=== PATIENT | male | born 1940 | race Caucasian/White ===

== ENCOUNTER 2017-11-02 13:06 | Inpatient (IN) | payer MEDICARE, OTHER ==
[~2017-11-02] VITALS: Ht 170.2 cm; Wt 102.5 kg
[2017-11-02] MEDS ORDERED: SODIUM CHLORIDE FLUSH 10ML SYR IVF ONE (14:00)
[2017-11-02] MEDS ORDERED: APIX5TAB PO (14:11)
[2017-11-02] MEDS ORDERED: ATOR10TA9 PO (14:12)
[2017-11-02] MEDS ORDERED: FURO20TA3 PO (14:12)
[2017-11-02] MEDS ORDERED: LEVO25TA4 PO (14:12)
[2017-11-02 14:13] LABS: BASOPHILS % (AUTO) 0 % (0-1); EOSINOPHILS # (AUTO) 0.01 x10^3/uL (0-0.4); EOSINOPHILS % (AUTO) 0 % (1-7); LYMPHOCYTES # (AUTO) 0.25 x10^3/uL (1-3.4); LYMPHOCYTES % (AUTO) 6 % (22-44); MD NO; MEAN CORPUSCULAR HEMOGLOBIN 29.4 pg (27.5-34.5); MEAN CORPUSCULAR HGB CONC 33.4 g/dL (33.2-36.2); MEAN CORPUSCULAR VOLUME 87.9 fL (81-97); MEAN PLATELET VOLUME 8.5 fL (7.4-10.4); MONOCYTES # (AUTO) 0.49 x10^3/uL (0.2-0.8); MONOCYTES % (AUTO) 11 % (2-9); NEUTROPHILS # (AUTO) 3.64 x10^3/uL (1.8-6.8); NEUTROPHILS % (AUTO) 83 % (42-75); PLATELET COUNT 146 x10^3/uL (130-400)
[2017-11-02] MEDS ORDERED: METO25TA35 PO (14:13)
[2017-11-02] MEDS ORDERED: TAMS0.4C2 PO (14:13)
[2017-11-02] MEDS ORDERED: LOSA25TA6 PO (14:13)
[2017-11-02] MEDS ORDERED: INSU100V8 SQ (14:14)
[2017-11-02] MEDS ORDERED: CHOL200085 PO (14:14)
[2017-11-02] MEDS ORDERED: INSU100C SQ-INSULIN (14:14)
[2017-11-02] MEDS ORDERED: ASPI-515 PO (14:15)
[2017-11-02 14:21] LABS: ALANINE AMINOTRANSFERASE 23 U/L (12-78); ALBUMIN 3.2 g/dL (3.4-5.0); ANION GAP 11 mmol/L (5-15); CALCIUM 8.2 mg/dL (8.5-10.1); CHLORIDE 112 mmol/L (98-107); INTERNATIONAL NORMALIZED RATIO 1.25 (0.93-1.1); PROTHROMBIN TIME 12.9 Seconds (9.6-11.5)
[2017-11-02 14:26] LABS: ALKALINE PHOSPHATASE 129 U/L (45-117); CREATININE 2.44 mg/dL (0.7-1.3); TOTAL PROTEIN 6.1 g/dL (6.4-8.2); TROPONIN I 0.042 ng/mL (0.000-0.045)
[2017-11-02] MEDS ORDERED: BISACODYL 10 MG SUPP PR PRN (16:30)
[2017-11-02] MEDS ORDERED: POLYETHYLENE GLYCOL 17 GM PACKET PO PRN (16:30)
[2017-11-02] MEDS ORDERED: LABETALOL 5MG/ML, 20ML IVPush PRN (16:30)
[2017-11-02] MEDS ORDERED: ACETAMINOPHEN 325 MG TABLET PO PRN (16:30)
[2017-11-02] MEDS ORDERED: HEPARIN 5,000 UNITS/ML, 1ML SQ SCH (16:30)
[2017-11-02] MEDS ORDERED: DOCUSATE 100 MG CAPSULE PO PRN (16:30)
[2017-11-02] MEDS: INSULIN GLARGINE 100 UNITS/ML, PEN SQ-INSULIN SCH ×2 (16:30→21:59)
[2017-11-02] MEDS ORDERED: ONDANSETRON 2MG/ML, 2ML IVPush PRN (16:30)
[2017-11-02 17:26] VITALS: BP 107/69
[2017-11-02 19:05] LABS: MICROSCOPIC NOT IND
[2017-11-02 19:07] LABS: CULTURE INDICATED? NO
[2017-11-02 21:14] LABS: TROPONIN I 0.097 ng/mL (0.000-0.045)
[2017-11-02 21:53] VITALS: BP 119/76
[2017-11-02] MEDS: TAMSULOSIN 0.4 MG CAP.ER.24H PO SCH (21:57)
[2017-11-02] MEDS: ATORVASTATIN 40 MG TABLET PO SCH (21:57)
[2017-11-02] MEDS: APIXABAN 5 MG TABLET PO SCH (21:57)
[2017-11-02] MEDS: INSULIN LISPRO 100 UNITS/ML, PEN SQ-INSULIN SCH (21:58)
[2017-11-02] MEDS: METOPROLOL TARTRATE 25 MG TABLET PO SCH (21:58)
[2017-11-02] MEDS: SODIUM CHLORIDE FLUSH 10ML SYR IVF SCH (21:59)
[2017-11-02] MEDS ORDERED: DIPHENHYDRAMINE 25 MG CAPSULE PO ONE (23:30)
[2017-11-03] VITALS (7 sets, daily range): BP systolic 95–111; BP diastolic 62–70
[2017-11-03 02:46] LABS: BASOPHILS # (AUTO) 0.01 x10^3/uL (0-0.1); BASOPHILS % (AUTO) 0 % (0-1); EOSINOPHILS # (AUTO) 0.04 x10^3/uL (0-0.4); EOSINOPHILS % (AUTO) 1 % (1-7); LYMPHOCYTES # (AUTO) 0.38 x10^3/uL (1-3.4); LYMPHOCYTES % (AUTO) 8 % (22-44); MD NO; MEAN CORPUSCULAR HEMOGLOBIN 28.5 pg (27.5-34.5); MEAN CORPUSCULAR HGB CONC 32.7 g/dL (33.2-36.2); MEAN CORPUSCULAR VOLUME 87.3 fL (81-97); MEAN PLATELET VOLUME 8.3 fL (7.4-10.4); MONOCYTES # (AUTO) 0.74 x10^3/uL (0.2-0.8); MONOCYTES % (AUTO) 16 % (2-9); NEUTROPHILS # (AUTO) 3.53 x10^3/uL (1.8-6.8); NEUTROPHILS % (AUTO) 75 % (42-75); PLATELET COUNT 153 x10^3/uL (130-400); RED BLOOD COUNT 3.72 x10^6/uL (4.38-5.82); RED CELL DISTRIBUTION WIDTH 15.9 % (9.4-14.8)
[2017-11-03 02:55] LABS: ANION GAP 10 mmol/L (5-15); CALCIUM 8.1 mg/dL (8.5-10.1); CHLORIDE 113 mmol/L (98-107)
[2017-11-03 03:00] LABS: CREATININE 2.52 mg/dL (0.7-1.3); TROPONIN I 0.102 ng/mL (0.000-0.045)
[2017-11-03] MEDS: FUROSEMIDE 20 MG/2 ML IV SCH ×2 (07:30→07:32)
[2017-11-03] MEDS: INSULIN LISPRO 100 UNITS/ML, PEN SQ-INSULIN SCH ×4 (07:31→21:09)
[2017-11-03] MEDS: APIXABAN 5 MG TABLET PO SCH ×2 (07:32→20:55)
[2017-11-03] MEDS: ASPIRIN 81 MG TABLET EC PO SCH (07:32)
[2017-11-03] MEDS: LEVOTHYROXINE 137 MCG TABLET PO SCH (07:32)
[2017-11-03] MEDS: CHOLECALCIFEROL 1,000 UNIT TABLET PO SCH (07:32)
[2017-11-03] MEDS: SODIUM CHLORIDE FLUSH 10ML SYR IVF SCH ×2 (07:32→20:55)
[2017-11-03] MEDS: METOPROLOL TARTRATE 25 MG TABLET PO SCH (07:33)
[2017-11-03] MEDS ORDERED: LOSARTAN 50MG TABLET PO SCH (09:00)
[2017-11-03] MEDS ORDERED: DOPAMINE/D5W PMX 250 ML IV PRN (16:00)
[2017-11-03] MEDS: MIDODRINE 5 MG TABLET PO SCH ×2 (16:36→20:55)
[2017-11-03] MEDS ORDERED: FUROSEMIDE 20 MG/2 ML IV SCH (18:00)
[2017-11-03] MEDS: ATORVASTATIN 40 MG TABLET PO SCH (20:55)
[2017-11-03] MEDS: TAMSULOSIN 0.4 MG CAP.ER.24H PO SCH (20:55)
[2017-11-03] MEDS ORDERED: DIPHENHYDRAMINE 50 MG CAPSULE PO ONE (21:00)
[2017-11-03] MEDS ORDERED: INSULIN GLARGINE 100 UNITS/ML, PEN SQ-INSULIN SCH (21:00)
[2017-11-04 01:17] VITALS: BP 107/72
[2017-11-04 05:23] VITALS: BP 107/69
[2017-11-04 05:39] LABS: BASOPHILS # (AUTO) 0.02 x10^3/uL (0-0.1); BASOPHILS % (AUTO) 0 % (0-1); EOSINOPHILS # (AUTO) 0.05 x10^3/uL (0-0.4); EOSINOPHILS % (AUTO) 1 % (1-7); LYMPHOCYTES # (AUTO) 0.48 x10^3/uL (1-3.4); LYMPHOCYTES % (AUTO) 11 % (22-44); MD NO; MEAN CORPUSCULAR HEMOGLOBIN 28.4 pg (27.5-34.5); MEAN CORPUSCULAR HGB CONC 32.3 g/dL (33.2-36.2); MEAN CORPUSCULAR VOLUME 87.9 fL (81-97); MEAN PLATELET VOLUME 8.6 fL (7.4-10.4); MONOCYTES # (AUTO) 0.82 x10^3/uL (0.2-0.8); MONOCYTES % (AUTO) 19 % (2-9); NEUTROPHILS # (AUTO) 2.93 x10^3/uL (1.8-6.8); NEUTROPHILS % (AUTO) 68 % (42-75); PLATELET COUNT 149 x10^3/uL (130-400); RED CELL DISTRIBUTION WIDTH 16.1 % (9.4-14.8)
[2017-11-04 05:54] LABS: CHLORIDE 113 mmol/L (98-107)
[2017-11-04] MEDS ORDERED: FUROSEMIDE 20 MG/2 ML IV SCH (06:00)
[2017-11-04 06:04] LABS: % IRON SATURATION 9 % (20-55); ANION GAP 9 mmol/L (5-15); CALCIUM 7.9 mg/dL (8.5-10.1); CREATININE 2.43 mg/dL (0.7-1.3); IRON LEVEL 26 mcg/dL (65-175); TOTAL IRON BINDING CAPACITY 303 mcg/dL (250-450)
[2017-11-04 06:10] VITALS: BP 105/74
[2017-11-04] MEDS: INSULIN LISPRO 100 UNITS/ML, PEN SQ-INSULIN SCH ×4 (07:00→21:30)
[2017-11-04] MEDS: CHOLECALCIFEROL 1,000 UNIT TABLET PO SCH (08:16)
[2017-11-04] MEDS: LEVOTHYROXINE 137 MCG TABLET PO SCH (08:16)
[2017-11-04] MEDS: ASPIRIN 81 MG TABLET EC PO SCH (08:16)
[2017-11-04] MEDS: APIXABAN 5 MG TABLET PO SCH ×2 (08:23→21:29)
[2017-11-04] MEDS: MIDODRINE 5 MG TABLET PO SCH ×3 (08:23→23:40)
[2017-11-04] MEDS: SODIUM CHLORIDE FLUSH 10ML SYR IVF SCH ×2 (08:24→21:29)
[2017-11-04 08:30] VITALS: BP 94/68
[2017-11-04 12:33] VITALS: BP 100/66
[2017-11-04 18:46] VITALS: BP 110/57
[2017-11-04] MEDS: FUROSEMIDE 40 MG/4 ML IV SCH (20:03)
[2017-11-04] MEDS: TAMSULOSIN 0.4 MG CAP.ER.24H PO SCH (21:29)
[2017-11-04] MEDS: ATORVASTATIN 40 MG TABLET PO SCH (21:29)
[2017-11-04] MEDS: INSULIN GLARGINE 100 UNITS/ML, PEN SQ-INSULIN SCH (21:31)
[2017-11-05 01:32] VITALS: BP 107/73
[2017-11-05 06:00] LABS: ANION GAP 10 mmol/L (5-15); CALCIUM 8.2 mg/dL (8.5-10.1); CHLORIDE 111 mmol/L (98-107); CREATININE 2.37 mg/dL (0.7-1.3)
[2017-11-05 06:35] LABS: BASOPHILS % (AUTO) 0 % (0-1); EOSINOPHILS # (AUTO) 0.05 x10^3/uL (0-0.4); EOSINOPHILS % (AUTO) 1 % (1-7); LYMPHOCYTES # (AUTO) 0.42 x10^3/uL (1-3.4); LYMPHOCYTES % (AUTO) 10 % (22-44); MD NO; MEAN CORPUSCULAR HEMOGLOBIN 28.7 pg (27.5-34.5); MEAN CORPUSCULAR HGB CONC 32.8 g/dL (33.2-36.2); MEAN CORPUSCULAR VOLUME 87.6 fL (81-97); MEAN PLATELET VOLUME 8.8 fL (7.4-10.4); MONOCYTES % (AUTO) 19 % (2-9); NEUTROPHILS # (AUTO) 2.84 x10^3/uL (1.8-6.8); NEUTROPHILS % (AUTO) 69 % (42-75); PLATELET COUNT 144 x10^3/uL (130-400); RED BLOOD COUNT 3.77 x10^6/uL (4.38-5.82); RED CELL DISTRIBUTION WIDTH 15.9 % (9.4-14.8)
[2017-11-05 06:55] VITALS: BP 103/70
[2017-11-05] MEDS: INSULIN LISPRO 100 UNITS/ML, PEN SQ-INSULIN SCH ×4 (07:00→20:12)
[2017-11-05] MEDS: SODIUM CHLORIDE FLUSH 10ML SYR IVF SCH ×2 (09:00→19:55)
[2017-11-05 09:01] VITALS: BP 106/68
[2017-11-05] MEDS: LEVOTHYROXINE 137 MCG TABLET PO SCH (09:03)
[2017-11-05] MEDS: ASPIRIN 81 MG TABLET EC PO SCH (09:03)
[2017-11-05] MEDS: APIXABAN 5 MG TABLET PO SCH ×2 (09:03→19:54)
[2017-11-05] MEDS: CHOLECALCIFEROL 1,000 UNIT TABLET PO SCH (09:03)
[2017-11-05] MEDS: MIDODRINE 5 MG TABLET PO SCH ×3 (09:04→19:55)
[2017-11-05] MEDS: FUROSEMIDE 40 MG/4 ML IV SCH ×2 (09:11→16:34)
[2017-11-05] MEDS: IRON SUCROSE COMPLEX 100MG/5ML IV SCH (11:57)
[2017-11-05 12:45] VITALS: BP 110/67
[2017-11-05 18:46] VITALS: BP 108/72
[2017-11-05] MEDS: ATORVASTATIN 40 MG TABLET PO SCH (19:54)
[2017-11-05] MEDS: TAMSULOSIN 0.4 MG CAP.ER.24H PO SCH (19:55)
[2017-11-05] MEDS: INSULIN GLARGINE 100 UNITS/ML, PEN SQ-INSULIN SCH (20:13)
[2017-11-05] MEDS ORDERED: DIPHENHYDRAMINE 25 MG CAPSULE PO PRN (21:00)
[2017-11-05] MEDS: DIPHENHYDRAMINE 25 MG CAPSULE PO PRN (21:55)
[2017-11-06] VITALS (8 sets, daily range): BP systolic 89–173; BP diastolic 53–89
[2017-11-06 05:36] LABS: BASOPHILS # (AUTO) 0.01 x10^3/uL (0-0.1); BASOPHILS % (AUTO) 0 % (0-1); EOSINOPHILS # (AUTO) 0.03 x10^3/uL (0-0.4); EOSINOPHILS % (AUTO) 1 % (1-7); LYMPHOCYTES % (AUTO) 9 % (22-44); MD NO; MEAN CORPUSCULAR HEMOGLOBIN 28.8 pg (27.5-34.5); MEAN CORPUSCULAR HGB CONC 32.9 g/dL (33.2-36.2); MEAN CORPUSCULAR VOLUME 87.3 fL (81-97); MEAN PLATELET VOLUME 8.4 fL (7.4-10.4); MONOCYTES # (AUTO) 0.86 x10^3/uL (0.2-0.8); MONOCYTES % (AUTO) 19 % (2-9); NEUTROPHILS # (AUTO) 3.23 x10^3/uL (1.8-6.8); NEUTROPHILS % (AUTO) 71 % (42-75); PLATELET COUNT 147 x10^3/uL (130-400); RED BLOOD COUNT 3.91 x10^6/uL (4.38-5.82); RED CELL DISTRIBUTION WIDTH 15.6 % (9.4-14.8)
[2017-11-06 05:47] LABS: ANION GAP 10 mmol/L (5-15); CALCIUM 8.6 mg/dL (8.5-10.1); CHLORIDE 110 mmol/L (98-107); CREATININE 2.22 mg/dL (0.7-1.3)
[2017-11-06] MEDS: INSULIN LISPRO 100 UNITS/ML, PEN SQ-INSULIN SCH ×4 (07:00→20:32)
[2017-11-06] MEDS: CHOLECALCIFEROL 1,000 UNIT TABLET PO SCH (08:50)
[2017-11-06] MEDS: ASPIRIN 81 MG TABLET EC PO SCH (08:50)
[2017-11-06] MEDS: APIXABAN 5 MG TABLET PO SCH ×2 (08:50→20:30)
[2017-11-06] MEDS: LEVOTHYROXINE 137 MCG TABLET PO SCH (08:51)
[2017-11-06] MEDS: IRON SUCROSE COMPLEX 100MG/5ML IV SCH (08:52)
[2017-11-06] MEDS: MIDODRINE 5 MG TABLET PO SCH ×3 (08:52→21:38)
[2017-11-06] MEDS: SODIUM CHLORIDE FLUSH 10ML SYR IVF SCH ×2 (09:00→20:30)
[2017-11-06] MEDS: FUROSEMIDE 40 MG/4 ML IV SCH ×2 (10:43→17:04)
[2017-11-06] MEDS: TAMSULOSIN 0.4 MG CAP.ER.24H PO SCH (20:30)
[2017-11-06] MEDS: ATORVASTATIN 40 MG TABLET PO SCH (20:30)
[2017-11-06] MEDS: INSULIN GLARGINE 100 UNITS/ML, PEN SQ-INSULIN SCH (20:32)
[2017-11-06] MEDS: DIPHENHYDRAMINE 25 MG CAPSULE PO PRN (21:39)
[2017-11-07 01:48] VITALS: BP 105/67
[2017-11-07 05:01] LABS: ANION GAP 12 mmol/L (5-15); CALCIUM 8.4 mg/dL (8.5-10.1); CHLORIDE 107 mmol/L (98-107)
[2017-11-07 05:02] LABS: MEAN CORPUSCULAR HEMOGLOBIN 28.5 pg (27.5-34.5); MEAN CORPUSCULAR VOLUME 86.5 fL (81-97); MEAN PLATELET VOLUME 8.4 fL (7.4-10.4); PLATELET COUNT 144 x10^3/uL (130-400)
[2017-11-07 05:03] LABS: CREATININE 2.23 mg/dL (0.7-1.3)
[2017-11-07 05:42] LABS: MD YES
[2017-11-07 05:44] LABS: EOS#(MANUAL) 0.09 x10^3/uL (0.0-0.4); EOS% (MANUAL) 2 % (1-7); LYMPH#(MANUAL) 0.39 x10^3/uL (1-3.4); LYMPHS% (MANUAL) 9 % (22-44); MONOS% (MANUAL) 14 % (2-9); SEG#(MANUAL) 3.23 x10^3/uL (1.8-6.8); SEGS% (MANUAL) 75 % (42-75)
[2017-11-07 05:45] LABS: ANISOCYTOSIS 1+; OVALOCYTES 1+
[2017-11-07 05:46] LABS: <PLATELET ESTIMATE> ADEQUATE; <PLT MORPHOLOGY> NORMAL PLT MORPH; ECHINOCYTES 1+
[2017-11-07 05:59] VITALS: BP_SYST 103; BP_SYST 96; BP_DIAS 57; BP_DIAS 69
[2017-11-07] MEDS: INSULIN LISPRO 100 UNITS/ML, PEN SQ-INSULIN SCH ×4 (07:00→21:42)
[2017-11-07 07:16] VITALS: BP 100/60
[2017-11-07] MEDS: ASPIRIN 81 MG TABLET EC PO SCH (08:11)
[2017-11-07] MEDS: CHOLECALCIFEROL 1,000 UNIT TABLET PO SCH (08:11)
[2017-11-07] MEDS: LEVOTHYROXINE 137 MCG TABLET PO SCH (08:11)
[2017-11-07] MEDS: APIXABAN 5 MG TABLET PO SCH ×2 (08:11→21:40)
[2017-11-07] MEDS: IRON SUCROSE COMPLEX 100MG/5ML IV SCH (08:12)
[2017-11-07] MEDS: MIDODRINE 5 MG TABLET PO SCH ×3 (08:12→21:48)
[2017-11-07] MEDS: FUROSEMIDE 40 MG/4 ML IV SCH ×2 (08:13→16:19)
[2017-11-07] MEDS: SODIUM CHLORIDE FLUSH 10ML SYR IVF SCH ×2 (08:13→21:48)
[2017-11-07] MEDS ORDERED: POLYETHYLENE GLYCOL 17 GM PACKET NG ONE (09:00)
[2017-11-07 14:45] VITALS: BP 108/67
[2017-11-07] MEDS: POTASSIUM CHLORIDE 20 MEQ TAB.ER.PRT PO SCH (16:19)
[2017-11-07 20:50] VITALS: BP 106/69
[2017-11-07] MEDS: ATORVASTATIN 40 MG TABLET PO SCH (21:40)
[2017-11-07] MEDS: TAMSULOSIN 0.4 MG CAP.ER.24H PO SCH (21:40)
[2017-11-07] MEDS: INSULIN GLARGINE 100 UNITS/ML, PEN SQ-INSULIN SCH (21:42)
[2017-11-07] MEDS: DIPHENHYDRAMINE 25 MG CAPSULE PO PRN (21:50)
[2017-11-08 01:06] VITALS: BP 122/89
[2017-11-08] MEDS: FUROSEMIDE 40 MG/4 ML IV SCH ×2 (06:21→16:38)
[2017-11-08] MEDS: INSULIN LISPRO 100 UNITS/ML, PEN SQ-INSULIN SCH ×4 (07:00→21:32)
[2017-11-08 07:13] VITALS: BP 107/71
[2017-11-08] MEDS: LEVOTHYROXINE 137 MCG TABLET PO SCH (08:56)
[2017-11-08] MEDS: ASPIRIN 81 MG TABLET EC PO SCH (08:56)
[2017-11-08] MEDS: POTASSIUM CHLORIDE 20 MEQ TAB.ER.PRT PO SCH ×2 (08:56→16:38)
[2017-11-08] MEDS: APIXABAN 5 MG TABLET PO SCH ×2 (08:57→21:27)
[2017-11-08] MEDS: MIDODRINE 5 MG TABLET PO SCH ×3 (08:57→21:45)
[2017-11-08] MEDS: IRON SUCROSE COMPLEX 100MG/5ML IV SCH (08:57)
[2017-11-08] MEDS: CHOLECALCIFEROL 1,000 UNIT TABLET PO SCH (08:57)
[2017-11-08] MEDS: SODIUM CHLORIDE FLUSH 10ML SYR IVF SCH ×2 (09:09→21:33)
[2017-11-08 11:59] LABS: ANION GAP 12 mmol/L (5-15); CALCIUM 8.3 mg/dL (8.5-10.1); CHLORIDE 105 mmol/L (98-107); CREATININE 2.29 mg/dL (0.7-1.3)
[2017-11-08 14:58] VITALS: BP 112/73
[2017-11-08 21:23] VITALS: BP 118/80
[2017-11-08] MEDS: ATORVASTATIN 40 MG TABLET PO SCH (21:27)
[2017-11-08] MEDS: DIPHENHYDRAMINE 25 MG CAPSULE PO PRN (21:27)
[2017-11-08] MEDS: TAMSULOSIN 0.4 MG CAP.ER.24H PO SCH (21:27)
[2017-11-08] MEDS: INSULIN GLARGINE 100 UNITS/ML, PEN SQ-INSULIN SCH (21:32)
[2017-11-09 00:45] VITALS: BP_SYST 102; BP_SYST 95; BP_DIAS 54; BP_DIAS 66
[2017-11-09 04:59] LABS: BASOPHILS % (AUTO) 0 % (0-1); EOSINOPHILS # (AUTO) 0.04 x10^3/uL (0-0.4); EOSINOPHILS % (AUTO) 1 % (1-7); LYMPHOCYTES # (AUTO) 0.42 x10^3/uL (1-3.4); LYMPHOCYTES % (AUTO) 9 % (22-44); MD NO; MEAN CORPUSCULAR HEMOGLOBIN 28.3 pg (27.5-34.5); MEAN CORPUSCULAR HGB CONC 32.5 g/dL (33.2-36.2); MEAN CORPUSCULAR VOLUME 87.2 fL (81-97); MEAN PLATELET VOLUME 8.7 fL (7.4-10.4); MONOCYTES # (AUTO) 0.78 x10^3/uL (0.2-0.8); MONOCYTES % (AUTO) 18 % (2-9); NEUTROPHILS # (AUTO) 3.23 x10^3/uL (1.8-6.8); NEUTROPHILS % (AUTO) 72 % (42-75); PLATELET COUNT 155 x10^3/uL (130-400); RED BLOOD COUNT 3.71 x10^6/uL (4.38-5.82); RED CELL DISTRIBUTION WIDTH 15.9 % (9.4-14.8)
[2017-11-09 05:10] LABS: ALANINE AMINOTRANSFERASE 21 U/L (12-78); ALBUMIN 3.3 g/dL (3.4-5.0); ANION GAP 10 mmol/L (5-15); CALCIUM 8.5 mg/dL (8.5-10.1); CHLORIDE 107 mmol/L (98-107); CREATININE 2.31 mg/dL (0.7-1.3)
[2017-11-09 05:13] LABS: ALKALINE PHOSPHATASE 141 U/L (45-117); BILIRUBIN,TOTAL 0.9 mg/dL (0.2-1.0); TOTAL PROTEIN 6.3 g/dL (6.4-8.2)
[2017-11-09] MEDS: FUROSEMIDE 40 MG/4 ML IV SCH (05:49)
[2017-11-09] MEDS: INSULIN LISPRO 100 UNITS/ML, PEN SQ-INSULIN SCH ×2 (07:00→11:00)
[2017-11-09 07:37] VITALS: BP 101/57
[2017-11-09] MEDS: LEVOTHYROXINE 137 MCG TABLET PO SCH (08:31)
[2017-11-09] MEDS: ASPIRIN 81 MG TABLET EC PO SCH (08:32)
[2017-11-09] MEDS: CHOLECALCIFEROL 1,000 UNIT TABLET PO SCH (08:32)
[2017-11-09] MEDS: APIXABAN 5 MG TABLET PO SCH (08:32)
[2017-11-09] MEDS: POTASSIUM CHLORIDE 20 MEQ TAB.ER.PRT PO SCH (08:33)
[2017-11-09] MEDS: MIDODRINE 5 MG TABLET PO SCH (08:34)
[2017-11-09] MEDS: IRON SUCROSE COMPLEX 100MG/5ML IV SCH (09:23)
[2017-11-09] MEDS: SODIUM CHLORIDE FLUSH 10ML SYR IVF SCH (09:30)
[2017-11-09] MEDS ORDERED: INSU100I13 SQ-INSULIN (12:58)
[2017-11-09] MEDS ORDERED: MIDO5TAB PO (12:58)
[2017-11-09] MEDS ORDERED: POTA20TA6 PO (12:58)
[2017-11-09] MEDS ORDERED: FURO40TA6 PO (12:58)
[2017-11-09 13:18] VITALS: BP 108/71
[2017-11-09] MEDS ORDERED: FUROSEMIDE 40 MG TABLET PO SCH (17:00)
== END 2017-11-09 15:06 | disposition home health service (06) | DRG 682 ==
LOC: ED 14:23 → EDIP 15:45 → 5SO 16:25
PROVIDERS: ADMIT Internal Medicine; ATTEND Internal Medicine
PROC: 4B02XSZ Measurement of Cardiac Pacemaker, External Approach (ICD-10-PCS; principal; 2017-11-03)
DX: N17.9 Acute kidney failure, unspecified (principal); I50.23 Acute on chronic systolic (congestive) heart failure; I13.0 Hypertensive heart and chronic kidney disease with heart failure and stage 1 through stage 4 chronic kidney disease, or unspecified chronic kidney disease; E87.2 Acidosis; E44.0 Moderate protein-calorie malnutrition; D68.69 Other thrombophilia; I42.9 Cardiomyopathy, unspecified; E03.9 Hypothyroidism, unspecified; D63.1 Anemia in chronic kidney disease; E11.22 Type 2 diabetes mellitus with diabetic chronic kidney disease; E78.5 Hyperlipidemia, unspecified; G47.00 Insomnia, unspecified; I35.8 Other nonrheumatic aortic valve disorders; I25.10 Atherosclerotic heart disease of native coronary artery without angina pectoris; N18.3 Chronic kidney disease, stage 3 (moderate); I48.0 Paroxysmal atrial fibrillation; Z79.01 Long term (current) use of anticoagulants; I25.2 Old myocardial infarction; Z79.4 Long term (current) use of insulin; Z82.0 Family history of epilepsy and other diseases of the nervous system; Z82.49 Family history of ischemic heart disease and other diseases of the circulatory system; Z85.46 Personal history of malignant neoplasm of prostate; Z87.891 Personal history of nicotine dependence; Z95.0 Presence of cardiac pacemaker; Z95.5 Presence of coronary angioplasty implant and graft; Z83.3 Family history of diabetes mellitus; Z68.35 Body mass index [BMI] 35.0-35.9, adult
CPT/HCPCS: 36415; 71045; 76770; 80048; 80051; 80053; 81003; 82306; 82570; 82728; 82962; 83540; 83550; 83735; 83880; 83970; 84100; 84443; 84484; 84550; 85025; 85610; 85730; 93005; 93306; 99285; G0378; J1756; J1940; J1815; Q0163